=== PATIENT | female | born 1990 ===

== ENCOUNTER 2023-06-21 13:37 | Outpatient (AMB) | payer BC, SELFPAY ==
--- NOTE | 2023-06-21 13:50 | HO.NEPHOV_ITS ---
HPI HPI Comments History of Present Illness Details I had the delight of seeing Mrs. Sepulveda in follow-up of her IgA nephropathy. She presented with a proteinuria. She had history of microscopic hematuria in the past. She underwent a renal biopsy which confirmed IgA nephropathy. She has been started on lisinopril which she takes faithfully. She is aware of the side effects including its effects in . She has no edema or orthostatic symptoms. She does not take any nonsteroidal anti- inflammatories. She maintains good hydration. She has no upper respiratory symptoms or macroscopic hematuria. She denies any chest pain, shortness of breath, paroxysmal nocturnal dyspnea, orthopnea, urinary symptoms, headache, visual disturbances, lip or throat swelling. There were no new active complaints at the time of this office visit. [facility] Surgical History (Updated 06/21/23 @ 13:55 by Makenzie Martinez MA) Status post biopsy of kidney Family History (Updated 06/21/23 @ 13:55 by Makenzie Martinez MA) Father Hypertension Social History (Updated 06/21/23 @ 13:55 by Makenzie Martinez MA) Alcohol intake: never Patient Tobacco Use Status: Never used Tobacco Vital Signs 06/21/23 13:51 Height 5 ft 6 in Weight 124 lb 6 oz BMI 20.1 BP 100/60 Blood Pressure Location Rt brachial Position Sitting Pulse 76 Pulse Source Pulse Oximeter Pulse Oximetry (%) 99 Oxygen Delivery Method Room Air Physical Exam Vital Signs: Last Vital Signs Pulse 76 06/21/23 13:51 BP 100/60 06/21/23 13:51 Pulse Ox 99 06/21/23 13:51 Oxygen Delivery Method Room Air 06/21/23 13:51 BMI result Body Mass Index 20.1 Const General: comfortable and no acute distress Orientation/consciousness: patient oriented x3 HEENT Head: Yes normocephalic Mouth: Normal oral and palatal mucosa present Eyes EOM: EOMs intact bilaterally Neck Neck: Yes supple Resp Auscultation: clear to auscultation bilaterally Cardio Jugular venous distension: no JVD Rate: regular rate GI Palpation (GI): Soft to palpation Auscultation: normal bowel sounds General: Yes no CVA tenderness Back/Spine/Pelvis Back: no CVA tenderness Skin General skin exam: no rashes or lesions noted Neuro General: patient oriented x3 and moves all extremities Extrem General: Yes no pedal edema Assessment & Plan Assessment & Plan (1) Proteinuria: Code(s): R80.9 - Proteinuria, unspecified Qualifiers: Proteinuria type: other Qualified Code(s): R80.8 - Other proteinuria (2) IgA nephropathy: Code(s): N02.B9 - Other recurrent and persistent immunoglobulin A nephropathy Plan Mrs. Sepulveda has biopsy-proven IgA nephropathy. She had proteinuria which has been well controlled on RUSSEL inhibitor. She does not have any upper respiratory symptoms, abdominal symptoms, macroscopic hematuria. Her renal functions are normal. Her blood pressure is at goal. I have ordered 24 hour urine for protein. She avoids nonsteroidal anti-inflammatories and maintain good hydration. I did not make any medication changes today. We discussed today again about IgA nephropathy, its management and follow-up. Answered all questions. Follow-up appointment given. Orders: Orders Protein, 24 Hr Urine Group Today R80.9 - Proteinuria, unspecified Coding Level of Care Code Est Pt Level 4 (20271) Diagnoses Other proteinuria R80.8 Proteinuria type: other IgA nephropathy N02.B9 Results Reviewed Nephrology Results: No Data to Display
[2023-06-21 13:51] VITALS: BP 100/60; PULSE 76; O2SAT 99; BMI 20.1
== END 2023-06-21 14:18 | disposition home or self-care (01) ==
PROVIDERS: PCP Internal Medicine; Visit Provider Internal Medicine Nephrology
DX: R80.8 Other proteinuria (principal); N02.B9 Other recurrent and persistent immunoglobulin A nephropathy
CPT/HCPCS: 99214

== ENCOUNTER → 2023-06-21 13:37 | Outpatient (BNVA) | payer BC, SELFPAY | PROVIDERS: PCP Internal Medicine; Visit Provider Internal Medicine Nephrology ==

== ENCOUNTER 2023-08-13 09:44 | Outpatient (REF) | payer BC, SELFPAY ==
[2023-08-13 11:35] LABS: Creatinine, mg/dL 110.27; Protein mg/dL 35 mg/dL
[2023-08-13 18:41] LABS: Creatinine, 24Hr Urine 1.5 G/Day (1.0-2.0); Protein 24 Hr Urine 490 mg/Day (<150); Total Volume 24 Hour Urine 1400 mL
== END 2023-08-13 09:45 | disposition home or self-care (01) ==
LOC: HO.LNP 09:44
PROVIDERS: Visit Provider Internal Medicine Nephrology
DX: R80.9 Proteinuria, unspecified (principal)
CPT/HCPCS: 84156

== ENCOUNTER 2023-08-21 13:28 | Outpatient (AMB) | payer BC, SELFPAY ==
[2023-08-21 13:49] VITALS: BP 92/60; PULSE 62; O2SAT 99; BMI 21.0
--- NOTE | 2023-08-21 13:49 | HO.NEPHOV ---
Vital Signs 08/21/23 13:49 Height 5 ft 6 in Weight 130 lb 6 oz BMI 21.0 BP 92/60 Blood Pressure Location Rt brachial Position Sitting Pulse 62 Pulse Source Pulse Oximeter Pulse Oximetry (%) 99 Oxygen Delivery Method Room Air Intake Visit Reasons: CKD/ 3 MO FU/ Confirmed Lamination Builder Required: No Accompanied by: Self / Same As Patient Allergies No Known Allergies Allergy (Verified 08/21/23 13:51) HPI Comments Details: I had the delight of seeing Mrs. Sepulveda in follow-up of her IgA nephropathy. She presented with proteinuria. She had history of microscopic hematuria in the past. She underwent a renal biopsy which confirmed IgA nephropathy. She has been started on lisinopril which she takes faithfully. She is aware of the side effects including its effects in . She has no edema or orthostatic symptoms. She does not take any nonsteroidal anti-inflammatories. She maintains good hydration. She has no upper respiratory symptoms or macroscopic hematuria. She denies any chest pain, shortness of breath, paroxysmal nocturnal dyspnea, orthopnea, urinary symptoms, headache, visual disturbances, lip or throat swelling. There were no new active complaints at the time of this office visit [facility] Surgical History Status post biopsy of kidney Family History Father Hypertension Social History Alcohol intake: never Patient Tobacco Use Status: Never used Tobacco Physical Exam Vital Signs: Last Vital Signs Pulse 62 08/21/23 13:49 BP 92/60 08/21/23 13:49 Pulse Ox 99 08/21/23 13:49 Oxygen Delivery Method Room Air 08/21/23 13:49 BMI result Body Mass Index 21.0 Const General: comfortable and no acute distress Orientation/consciousness: patient oriented x3 HEENT Head: Yes normocephalic Mouth: Normal oral and palatal mucosa present Eyes EOM: EOMs intact bilaterally Neck Neck: Yes supple Resp Auscultation: clear to auscultation bilaterally Cardio Jugular venous distension: no JVD Rate: regular rate GI Palpation (GI): Soft to palpation Auscultation: normal bowel sounds General: Yes no CVA tenderness Back/Spine/Pelvis Back: no CVA tenderness Skin General skin exam: no rashes or lesions noted Neuro General: patient oriented x3 and moves all extremities Extrem General: Yes no pedal edema Results Reviewed Nephrology Results: No Data to Display Assessment & Plan Assessment & Plan (1) Proteinuria: Code(s): R80.9 - Proteinuria, unspecified Category: Medical Qualifiers: Proteinuria type: other Qualified Code(s): R80.8 - Other proteinuria (2) IgA nephropathy: Code(s): N02.B9 - Other recurrent and persistent immunoglobulin A nephropathy Category: Medical Plan Mrs. Sepulveda has biopsy-proven IgA nephropathy. She is on RUSSEL inhibitor. She does not have any upper respiratory symptoms, abdominal symptoms, macroscopic hematuria. Her renal functions are normal. Her blood pressure is at goal. Her last urine studies showed 490 mg of protein. I increased her lisinopril to 2.5 mg bid. She takes fish oil. She avoids nonsteroidal anti-inflammatories and maintain good hydration. I did not make any other medication changes today. We discussed today again about IgA nephropathy, its management and follow-up. Answered all questions. Follow-up appointment given. Orders: Orders Creatinine Today N02.B9 - Other recurrent and persistent immunoglobulin A nephropathy, R80.8 - Other proteinuria Electrolytes Today N02.B9 - Other recurrent and persistent immunoglobulin A nephropathy, R80.8 - Other proteinuria UA and rflx microscopic Today N02.B9 - Other recurrent and persistent immunoglobulin A nephropathy, R80.8 - Other proteinuria Blood Urea Nitrogen Today N02.B9 - Other recurrent and persistent immunoglobulin A nephropathy, R80.8 - Other proteinuria Protein Creatinine Ratio, Ur Today N02.B9 - Other recurrent and persistent immunoglobulin A nephropathy, R80.8 - Other proteinuria Medications: Changed From lisinopril 2.5 mg PO DAILY To lisinopril 2.5 mg PO BID 90 days 180 tabs 1RF Coding Level of Care Code Est Pt Level 4 (04142) Diagnoses Other proteinuria R80.8 Proteinuria type: other IgA nephropathy N02.B9
== END 2023-08-21 14:23 | disposition home or self-care (01) ==
PROVIDERS: PCP Internal Medicine; Visit Provider Internal Medicine Nephrology
DX: R80.8 Other proteinuria (principal); N02.B9 Other recurrent and persistent immunoglobulin A nephropathy
CPT/HCPCS: 99214

== ENCOUNTER → 2023-08-21 13:28 | Outpatient (BNVA) | payer BC, SELFPAY | PROVIDERS: PCP Internal Medicine; Visit Provider Internal Medicine Nephrology ==

== ENCOUNTER 2023-12-19 08:02 | Outpatient (REF) | payer SELFPAY ==
[2023-12-19 08:52] LABS: Appearance Urine Clear; Color Urine Yellow; Glucose Urine UA Negative (Negative); Leukocyte Esterase Urine Negative (Negative); Nitrite Urine Negative (Negative); Specific Gravity - Urine 1.025 (1.005-1.025); UMIC TRIGGER UA YES; Urine Blood Large (3+) (Negative); Urine Ketones Negative (Negative); Urine Protein 30 (1+) mg/dL (Neg-Trace)
[2023-12-19 08:54] LABS: Bacteria Urine None Seen (None Seen); Hyaline Casts Urine 0-2 /LPF (0-2); RBC Urine >20 /HPF (0-2); Squamous Epithelial Cell Urine 0-2 /HPF (0-2); WBC Urine 0-5 /HPF (0-5)
[2023-12-19 09:29] LABS: Creatinine Urine 132.02 mg/dL; Total Protein Urine Random 27 mg/dL (<12)
[2023-12-19 09:31] LABS: Anion Gap 10 (12-20); Blood Urea Nitrogen 15 mg/dL (9-16); Carbon Dioxide 25 mmol/L (22-29); Chloride 108 mmol/L (96-108); Estimated Glomerular Filt Rate > 60; Potassium 3.8 mmol/L (3.3-5.1); Sodium 139 mmol/L (135-145)
== END 2023-12-19 08:03 | disposition home or self-care (01) ==
LOC: HO.LAB 08:02
PROVIDERS: Visit Provider Internal Medicine Nephrology
DX: N02.B9 Other recurrent and persistent immunoglobulin A nephropathy (principal); R80.8 Other proteinuria
CPT/HCPCS: 36415; 80051; 81001; 82565; 82570; 84156; 84520

== ENCOUNTER 2024-01-29 13:01 | Outpatient (AMB) | payer SELFPAY ==
[2024-01-29 13:31] VITALS: BP 94/60; PULSE 79; O2SAT 98; BMI 21.4
--- NOTE | 2024-01-29 13:31 | HO.NEPHOV ---
Vital Signs 01/29/24 13:31 Height 5 ft 6 in Weight 132 lb 8 oz BMI 21.4 BP 94/60 Blood Pressure Location Rt brachial Position Sitting Pulse 79 Pulse Source Pulse Oximeter Pulse Oximetry (%) 98 Oxygen Delivery Method Room Air Intake Visit Reasons: CKD/ 3 MO FU- LVM Community Integration Specialist Required: No Accompanied by: Self / Same As Patient Allergies No Known Allergies Allergy (Verified 01/29/24 13:33) HPI Comments Details: I had the delight of seeing Mrs. Sepulveda in follow-up of her IgA nephropathy. She presented with proteinuria. She had history of microscopic hematuria in the past. She underwent a renal biopsy which confirmed IgA nephropathy. She has been started on lisinopril which she takes faithfully. She is aware of the side effects including its effects in . She has no edema or orthostatic symptoms. She does not take any nonsteroidal anti-inflammatories. She maintains good hydration. She has no upper respiratory symptoms or macroscopic hematuria. She denies any chest pain, shortness of breath, paroxysmal nocturnal dyspnea, orthopnea, urinary symptoms, headache, visual disturbances, lip or throat swelling. There were no new active complaints at the time of this office visit [facility] Surgical History Status post biopsy of kidney Family History Father Hypertension Social History Alcohol intake: never Patient Tobacco Use Status: Never used Tobacco Review of Systems Const All systems reviewed & are unremarkable except as noted in HPI and below Physical Exam Const General: comfortable and no acute distress Orientation/consciousness: patient oriented x3 HEENT Head: Yes normocephalic Mouth: Normal oral and palatal mucosa present Eyes EOM: EOMs intact bilaterally Neck Neck: Yes supple Resp Auscultation: clear to auscultation bilaterally Cardio Jugular venous distension: no JVD Rate: regular rate GI Palpation (GI): Soft to palpation Auscultation: normal bowel sounds General: Yes no CVA tenderness Back/Spine/Pelvis Back: no CVA tenderness Skin General skin exam: no rashes or lesions noted Neuro General: patient oriented x3 and moves all extremities Extrem General: Yes no pedal edema Results Reviewed Nephrology Results: Sodium 139 mmol/L (135-145) 08/29/24 Potassium 3.8 mmol/L (3.3-5.1) 12/19/23 Chloride 108 mmol/L (96-108) 12/19/23 Carbon Dioxide 25 mmol/L (22-29) 12/19/23 BUN 15 mg/dL (9-16) 12/19/23 Creatinine 0.81 mg/dL (0.5-1.4) 12/19/23 Urine Protein 30 (1+) mg/dL (Neg-Trace) H 12/19/23 Urine Creatinine 132.02 mg/dL 12/19/23 Protein/Creatinin Ratio 0.20 (<0.2) 12/19/23 Assessment & Plan Assessment & Plan (1) IgA nephropathy: Code(s): N02.B9 - Other recurrent and persistent immunoglobulin A nephropathy Category: Medical (2) Proteinuria: Code(s): R80.9 - Proteinuria, unspecified Category: Medical Qualifiers: Proteinuria type: other Qualified Code(s): R80.8 - Other proteinuria Plan Mrs. Sepulveda has biopsy-proven IgA nephropathy. She is on RUSSEL inhibitor. She does not have any upper respiratory symptoms, abdominal symptoms, macroscopic hematuria. Her renal functions are normal. Her blood pressure is at goal. Her last urine studies showed 490 mg of protein & I increased her lisinopril to 2.5 mg bid. Her proteinuria is undetectable now. She takes fish oil. She avoids nonsteroidal anti-inflammatories and maintain good hydration. I did not make any other medication changes today. We discussed today again about IgA nephropathy, its management and follow-up. Answered all questions. Follow-up appointment given. Orders: Orders Electrolytes 6 Months N02.B9 - Other recurrent and persistent immunoglobulin A nephropathy, R80.8 - Other proteinuria Blood Urea Nitrogen 6 Months N02.B9 - Other recurrent and persistent immunoglobulin A nephropathy, R80.8 - Other proteinuria Protein Creatinine Ratio, Ur 6 Months N02.B9 - Other recurrent and persistent immunoglobulin A nephropathy, R80.8 - Other proteinuria Creatinine 6 Months N02.B9 - Other recurrent and persistent immunoglobulin A nephropathy, R80.8 - Other proteinuria UA and rflx microscopic 6 Months N02.B9 - Other recurrent and persistent immunoglobulin A nephropathy, R80.8 - Other proteinuria Medications: Refilled lisinopril 2.5 mg PO BID 90 days 180 tabs 4RF Coding Level of Care Code Est Pt Level 4 (02781) Diagnoses IgA nephropathy N02.B9 Other proteinuria R80.8 Proteinuria type: other
== END 2024-01-29 13:52 | disposition home or self-care (01) ==
LOC: HO.HKA 13:01
PROVIDERS: PCP Internal Medicine; Visit Provider Internal Medicine Nephrology
DX: N02.B9 Other recurrent and persistent immunoglobulin A nephropathy (principal); R80.8 Other proteinuria
CPT/HCPCS: 99214

== ENCOUNTER → 2024-01-29 13:01 | Outpatient (BNVA) | payer SELFPAY | PROVIDERS: PCP Internal Medicine; Visit Provider Internal Medicine Nephrology | DX: N02.B9 Other recurrent and persistent immunoglobulin A nephropathy (principal); R80.8 Other proteinuria; Z79.899 Other long term (current) drug therapy | CPT/HCPCS: 99212 ==

== ENCOUNTER 2024-07-23 10:37 | Outpatient (REF) | payer SELFPAY ==
[2024-07-23 11:50] LABS: Appearance Urine Clear; Color Urine Yellow; Glucose Urine UA Negative (Negative); Leukocyte Esterase Urine Negative (Negative); Nitrite Urine Negative (Negative); UMIC TRIGGER UA YES; Urine Blood Moderate (2+) (Negative); Urine Ketones Negative (Negative); Urine Protein Negative (Neg-Trace)
[2024-07-23 11:55] LABS: Bacteria Urine None Seen (None Seen); Hyaline Casts Urine 0-2 /LPF (0-2); WBC Urine 0-5 /HPF (0-5)
[2024-07-23 12:18] LABS: Anion Gap 12 (12-20); Blood Urea Nitrogen 12 mg/dL (9-16); Carbon Dioxide 25 mmol/L (22-29); Chloride 106 mmol/L (96-108); Estimated Glomerular Filt Rate > 60; Sodium 139 mmol/L (135-145)
[2024-07-23 12:46] LABS: Creatinine Urine 40.46 mg/dL; Total Protein Urine Random < 7 mg/dL (<12)
== END 2024-07-23 10:38 | disposition home or self-care (01) ==
LOC: HO.LAB 10:37
PROVIDERS: Visit Provider Internal Medicine Nephrology
DX: N02.B9 Other recurrent and persistent immunoglobulin A nephropathy (principal); R80.8 Other proteinuria
CPT/HCPCS: 36415; 80051; 81001; 82565; 82570; 84156; 84520

== ENCOUNTER 2024-07-24 11:35 | Outpatient (AMB) | payer SELFPAY ==
--- NOTE | 2024-07-24 11:41 | HO.NEPHOV_ITS ---
Vital Signs 07/24/24 11:42 Height 5 ft 6 in Weight 134 lb 8 oz BMI 21.7 BP 84/50 L Blood Pressure Location Rt brachial Position Sitting Pulse 73 Pulse Source Pulse Oximeter Pulse Oximetry (%) 99 Oxygen Delivery Method Room Air Intake Visit Reasons: CKD-Conf Online Services Manager Required: No Accompanied by: Self / Same As Patient Allergies No Known Allergies Allergy (Verified 07/24/24 11:42) HPI Comments Details: I had the delight of seeing Mrs. Sepulveda in follow-up of her IgA nephropathy. She presented with proteinuria. She had history of microscopic hematuria in the past. She underwent a renal biopsy which confirmed IgA nephropathy. She has been started on lisinopril which she takes faithfully. She is aware of the side effects including its effects in . She has no edema or orthostatic symptoms. She does not take any nonsteroidal anti-inflammatories. She maintains good hydration. She has no upper respiratory symptoms or macroscopic hematuria. She denies any chest pain, shortness of breath, paroxysmal nocturnal dyspnea, orthopnea, urinary symptoms, headache, visual disturbances, lip or throat swelling. There were no new active complaints at the time of this office visit [facility] Surgical History Status post biopsy of kidney Family History Father Hypertension Social History Alcohol intake: never Patient Tobacco Use Status: Never used Tobacco Review of Systems Const All systems reviewed & are unremarkable except as noted in HPI and below Physical Exam Const General: comfortable and no acute distress Orientation/consciousness: patient oriented x3 HEENT Head: Yes normocephalic Mouth: Normal oral and palatal mucosa present Eyes EOM: EOMs intact bilaterally Neck Neck: Yes supple Resp Auscultation: clear to auscultation bilaterally Cardio Jugular venous distension: no JVD Rate: regular rate GI Palpation (GI): Soft to palpation Auscultation: normal bowel sounds Skin General skin exam: no rashes or lesions noted Neuro General: patient oriented x3 and moves all extremities Extrem General: Yes no pedal edema Results Reviewed Nephrology Results: Sodium 139 mmol/L (135-145) 07/23/24 Potassium 4.0 mmol/L (3.3-5.1) 07/23/24 Chloride 106 mmol/L (96-108) 07/23/24 Carbon Dioxide 25 mmol/L (22-29) 07/23/24 BUN 12 mg/dL (9-16) 07/23/24 Creatinine 0.72 mg/dL (0.5-1.4) 07/23/24 Urine Protein Negative mg/dL (Neg-Trace) 07/23/24 Urine Creatinine 40.46 mg/dL 07/23/24 Protein/Creatinin Ratio TNP 07/23/24 Assessment & Plan Assessment & Plan (1) IgA nephropathy: Code(s): N02.B9 - Other recurrent and persistent immunoglobulin A nephropathy Category: Medical (2) Proteinuria: Code(s): R80.9 - Proteinuria, unspecified Category: Medical Qualifiers: Proteinuria type: other Qualified Code(s): R80.8 - Other proteinuria Plan Mrs. Sepulveda has biopsy-proven IgA nephropathy. She is on RUSSEL inhibitor. She does not have any upper respiratory symptoms, abdominal symptoms, macroscopic hematuria. Her renal functions are normal. Her blood pressure is at goal. Her last urine studies showed 490 mg of protein & I increased her lisinopril to 2.5 mg bid with resolution . Her proteinuria is undetectable now. She takes fish oil. She avoids nonsteroidal anti-inflammatories and maintain good hydration. I did not make any other medication changes today. We discussed today again about IgA nephropathy, its management and follow-up. Answered all questions. Follow-up appointment given. Medications: Refilled lisinopril 2.5 mg PO BID 90 days 180 tabs 4RF Coding Level of Care Code Est Pt Level 4 (06640) Diagnoses IgA nephropathy N02.B9 Other proteinuria R80.8 Proteinuria type: other
[2024-07-24 11:42] VITALS: BP 84/50; PULSE 73; O2SAT 99; BMI 21.7
== END 2024-07-24 12:02 | disposition home or self-care (01) ==
LOC: HO.HKA 11:36
PROVIDERS: PCP Internal Medicine; Visit Provider Internal Medicine Nephrology
DX: N02.B9 Other recurrent and persistent immunoglobulin A nephropathy (principal); R80.8 Other proteinuria
CPT/HCPCS: 99214

== ENCOUNTER → 2024-07-24 11:35 | Outpatient (BNVA) | payer BC, SELFPAY | PROVIDERS: PCP Internal Medicine; Visit Provider Internal Medicine Nephrology | DX: N02.B9 Other recurrent and persistent immunoglobulin A nephropathy (principal); R80.8 Other proteinuria | CPT/HCPCS: 99212 ==